=== PATIENT | female | born 1995 | race Two or more races ===

== ENCOUNTER 2024-07-07 14:48 | Emergency (ER) | payer MEDICAID, SELFPAY ==
[2024-07-07 14:48] VITALS: BMI 28.0
[2024-07-07 14:59] VITALS: BP 111/71; PULSE 82; RESP 18; TEMP 36.7; O2SAT 98
--- NOTE | 2024-07-07 15:05 | XR_ITS ---
Examination: OB Transvaginal ultrasound of the pelvis, complete Technique: Transvaginal sonographic images pelvis performed using shaver scale imaging Exam date and time: :2024 1527 hours INDICATIONS: Onset vaginal bleeding today FINDINGS: Uterus 9.4 cm pole 2.4 cm and corresponds to 9 weeks 1 day gestational age No cardiac motion Subchorionic hemorrhage 5.5 x 3.7 x 5.3 cm Right ovary 3.0 cm arterial flow The left ovary 3.4 cm arterial flow IMPRESSION: Findings consistent with demise, no cardiac motion.
--- NOTE | 2024-07-07 15:06 | PD.EDRME ---
Rapid Medical Screening Exam RME Arrival date/time: 07/07/24 14:48 28-year-old female presents to the Emergency Department today for complaint of vaginal bleeding Chief Complaint: Vaginal Bleeding Time Seen by Provider: 07/07/24 14:50 Vital signs: Vital Signs Temperature 98.1 F 07/07/24 14:59 Pulse Rate 82 07/07/24 14:59 Respiratory Rate 18 07/07/24 14:59 Blood Pressure 111/71 07/07/24 14:59 Pulse Oximetry (%) 98 07/07/24 14:59 Oxygen Delivery Method Room Air 07/07/24 14:59
[2024-07-07 15:28] LABS: Basophils % (Auto) 0 % (0-2.5); Eosinophils % (Auto) 1 % (0-10); Hematocrit 35.9 % (36.0-46.0); Hemoglobin 12.5 g/dL (12.0-16.0); Immature Granulocytes % (Auto) 0 % (0-0); Immature Granulocytes Auto 0.03 Thou/mm3 (0.00-0.00); Lymphocytes # (Auto) 1.6 Thou/mm3 (1.0-4.8); Lymphocytes % (Auto) 20 % (10-50); Mean Corpuscular HGB Conc 34.8 g/dl (31.0-37.0); Mean Corpuscular Hemoglobin 29.9 pg (25.0-35.0); Mean Corpuscular Volume 86 fL (80-100); Monocytes # (Auto) 0.6 Thou/mm3 (0.0-0.8); Monocytes % (Auto) 7 % (0-12); Neutrophils # (Auto) 5.7 Thou/mm3 (1.8-7.7); Neutrophils % (Auto) 72 % (37-80); Nucleated Red Blood Cell % 0 /100 WBC (0); Platelet Count 315 Thou/mm3 (140-440); RDW Standard Deviation 42.9 fL (36.4-46.3); Red Blood Count 4.18 Miln/mm3 (4.00-5.20)
[2024-07-07 15:38] LABS: Collection Type, Urine Clean Catch
[2024-07-07 16:02] LABS: Bilirubin,Urine Negative (Negative); Blood,Urine 2+ (Negative); Clarity,Urine Clear (Clear/Hazy); Color,Urine Lt-Yellow (Lt Yel-Yel); Glucose, Urine Negative (Negative); Ketones,Urine 1+ (Negative); Leukocyte Esterase,Urine Negative (Negative); Nitrite,Urine Negative (Negative); Protein,Urine Negative (Neg - Trace); RBC,Urine 1 /hpf (0-3); Squamous Epithelial Cell,Urine 2 /hpf (0-5); Urobilinogen,Urine Negative mg/dL (0.0-1.0); WBC,Urine 3 /hpf (0-5)
[2024-07-07 16:08] LABS: Alanine Aminotransferase 9 U/L (10-49); Albumin, Serum 4.4 gm/dL (3.5-5.0); Albumin/Globulin Ratio 1.5 (1.2-2.2); Alkaline Phosphatase 76 U/L (46-116); Anion Gap 10 (7-16); Aspartate Amino Transferase 13 U/L (0-34); BUN/Creatinine Ratio 15 Ratio (12-20); Bilirubin,Total 0.2 mg/dL (0.3-1.2); Blood Urea Nitrogen 9 mg/dL (9-23); Calcium 8.7 mg/dL (8.3-10.6); Calcium (Corrected) 8.7 mg/dL (8.5-10.1); Carbon Dioxide 22.2 mMol/L (20.0-31.0); Chloride 107 mMol/L (98-107); Creatinine (Component) 0.6 mg/dL (0.6-1.3); Estimated Creatinine Clearance 134.8 mL/min (>60); Globulin 2.9 gm/dL (2.3-3.5); Glucose 97 mg/dL (74-106); Osmolality,Calculated 276 (275-295); Potassium 3.7 mMol/L (3.4-5.1); Sodium 139 mMol/L (136-145); Total Protein 7.3 gm/dL (5.7-8.2); eGFR > 60 See Note
[2024-07-07 16:33] LABS: Beta HCG,Quantitative 34612 mIU/mL (<5.0)
[2024-07-07 17:15] VITALS: BP 115/65; PULSE 80; RESP 16; TEMP 36.7; O2SAT 99
--- NOTE | 2024-07-07 18:35 | EDNOTE_ITS ---
ED OB Contraction Preg RMI/HPI General Chief complaint: Vaginal Bleeding Stated complaint: +PREG, VAG BLEED THIS AM Time Seen by Provider: 07/07/24 14:50 Arrival date/time: 07/07/24 14:48 RME / HPI RME / HPI Narrative: 07/07/24 14:48 28-year-old female presents to the Emergency Department today for complaint of vaginal bleeding DR. CASTANEDA MAIN ED EVALUATION 28 year old female who is currently ~8-9 weeks gestational age by LMP 05/03/2024 presents to the ED for evaluation of abdominal pain beginning this morning. Pain described as cramping in sensation that is located most across pelvis, rating as moderate. Accompanied by bloody tinged discharge. Reports taking Tylenol without improvement. No other associated symptoms or complaints reported. Denies fever, chills, sweating. Denies nausea, vomiting, diarrhea, constipation. Denies dysuria, urinary frequency and urgency. Related Data Home Medications ?Medication ?Instructions ?Recorded ?Confirmed ferrous sulfate 325 mg (65 mg 325 mg PO BID 11/21/17 0 05/23/23 iron) tablet (Iron (ferrous sulfate)) vits no.124-ferrous fum 1 tab PO QDAY 4 05/23/23 27 mg iron-folic acid 800 mcg tablet ( Vitamin) Previous Rx's ?Medication ?Instructions ?Recorded docusate sodium 100 mg capsule 100 mg PO BID #60 caps 05/24/23 (Colace) ibuprofen 800 mg tablet 800 mg PO Q6H PRN pain #120 tabs 05/24/23 lanolin 50 % topical ointment 1 applic topical TID PRN skin 05/24/23 irritation #15 tubes Allergies Allergy/AdvReac Type Severity Reaction Status Date / Time No Known Allergies Allergy Verified 07/07/24 14:51 Review of Systems Review of Systems Systems Reviewed: All systems reviewed, normal except as documented Past Medical History Past Medical History NEUROLOGIC: Negative Neurological Disorders CARDIAC: Negative Cardiac Disorders RESPIRATORY: Positive Asthma (INHALER PRN) GASTROINTESTINAL: Positive Gastrointestinal Disorders (HX:GASTRITIS) GENITOURINARY: Positive Genitourinary Disorders (HX:UTI); Negative Renal Disease MUSCULOSKELETAL: Negative Musculoskeletal Disorders ENDOCRINE: Negative Endocrine Disorders HEMATOLOGIC: Positive Blood Disorders and Anemia Family History FAMILY HISTORY: Positive Family Gastrointestinal Problems (UNCLE:GASTRITIS) and Family Cancer (AUNT:BREAST CANCER, CERVIX); Negative Family Psychiatric Problems, Family Respiratory Disorders, Family Cardiac Disorders, Family Surgery or Family Anesthesia Reaction Surgical History SURGICAL: Negative Section Social History SMOKING STATUS: Never smoker ED Exam Narrative Physical exam: GENERAL APPEARANCE:? alert and oriented x 4, well-developed, well-nourished, no acute distress HEENT: normocephalic, atraumatic NECK: supple LUNGS: no respiratory distress, normal effort HEART: good peripheral perfusion ABDOMEN: non distended EXTREMITIES:? atraumatic NEUROLOGIC: awake; alert and oriented x4; cranial nerves II-XII grossly intact PSYCHIATRIC:? appropriate mood and affect SKIN: warm, dry, normal color; no rashes Course Quality Measures none Orders Category Date Time Status US OB transvaginal Stat Exams 07/07/24 15:05 Completed ABO/RH Type Stat Lab 07/07/24 15:12 Completed Beta HCG,Quantitative Stat Lab 07/07/24 15:12 Completed CBC Stat Lab 07/07/24 15:12 Completed Comprehensive Metabolic Panel Stat Lab 07/07/24 15:12 Completed UA [Urinalysis] Stat Lab 07/07/24 15:22 Completed Urine Culture Stat Lab 07/07/24 15:22 Completed Vital Signs Vital signs: Vital Signs Temperature 98.1 F 07/07/24 14:59 Pulse Rate 82 07/07/24 14:59 Respiratory Rate 18 07/07/24 14:59 Blood Pressure 111/71 07/07/24 14:59 Pulse Oximetry (%) 98 07/07/24 14:59 Oxygen Delivery Method Room Air 07/07/24 14:59 Pulse ox is 98% on room air which is adequate. Vaginal Bleeding MDM Narrative MDM Narrative: Danielle Keating am scribing for and in the presence of Dr. Castaneda. Patient data External records reviewed:: [facility] previous records (I reviewed ED visit on 12/07/2022 ) Clinical information provided by:: patient Social determinants that could affect healthcare access:: none Patient has the following chronic illnesses:: None reported How is presenting disease/condition affected by chronic disease/condition?: no chronic disease Evaluation data The following diagnostics were reviewed and interpreted by me:: lab results and radiology exam(s) Lab and/or radiology exams considered but not ordered:: None Interpretation Summary: Ordering Physician: Jackson FRASER)Kirk NP Date of Service: 07/07/24 Procedure(s): US OB transvaginal Accession Number(s): [id number] cc: Jackson (KELBY),Kirk LAMA; Kirk Hartman PA-C; Jeevan Houston MD~ Examination: OB Transvaginal ultrasound of the pelvis, complete Technique: Transvaginal sonographic images pelvis performed using shaver scale imaging Exam date and time: 2024 1527 hours INDICATIONS: Onset vaginal bleeding today FINDINGS: Uterus 9.4 cm pole 2.4 cm and corresponds to 9 weeks 1 day gestational age No cardiac motion Subchorionic hemorrhage 5.5 x 3.7 x 5.3 cm Right ovary 3.0 cm arterial flow The left ovary 3.4 cm arterial flow IMPRESSION: Findings consistent with demise, no cardiac motion. Dictated By: Jeevan Houston MD Signed By: <Electronically signed by Jeevan Houston MD in OV> 07/07/24 1637 Medications / Prescriptions Medications or Prescriptions considered but not ordered:: None Medication administrations:: None Consultations Consultation(s) initiated? (list below): No Diagnosis Vaginal Bleeding Differential Diagnosis: missed , threatened , incomplete and vaginal bleeding Most likely diagnosis given after review of the tests above:: Threatened Admission Indicated Admission indicated?: not indicated Admission Request Was there a request for admission?: No Disposition Plan Disposition Plan: Discharge Discharge Attestation Discharge Attestation: The patient and all family members were given an opportunity to ask questions and understood the discharge instructions. Discharge instructions specifically effects, indications for sooner follow up or return to the emergency department, and the expected course of current diagnosis. Patient condition: Stable Discharge Plan Plan Patient Disposition: HOME (Self Care) Prescriptions/Referrals Prescriptions/Med Rec: No Action ferrous sulfate [Iron (ferrous sulfate)] 325 mg (65 mg iron) Tablet 325 mg PO BID Vitamin 27 mg iron- 800 mcg Tablet 1 tab PO QDAY ibuprofen 800 mg tablet 800 mg PO Q6H MDD 4 PRN (Reason: pain) Qty: 120 0RF docusate sodium [Colace] 100 mg capsule 100 mg PO BID Qty: 60 0RF lanolin 50 % ointment 1 applic topical TID PRN (Reason: skin irritation) Qty: 15 0RF Referrals: Kirk Hartman PA-C [Primary Care Provider] - In 1 week Problem List Clinical Impression: Threatened Patient/Caregiver Discharge Instructions Education Materials: ED Possible Miscarriage ... Additional Instructions: It is likely you are having a miscarriage. Follow up with your doctor in 2 days for recheck of hormone levels for confirmation. 07/07/24 1512: beta HCG [id number] Print Language: Danish Stand Alone Forms: Shannon Award Info., Patient Portal Info Letter
== END 2024-07-07 18:28 | disposition home or self-care (01) ==
PROVIDERS: Nurse Practitioner Primary Care; Emergency Provider Emergency Medicine; PCP Physician Assistant
DX: O20.0 Threatened abortion (principal); Z3A.00 Weeks of gestation of pregnancy not specified
CPT/HCPCS: 36415; 76817; 80053; 81001; 84702; 85025; 86900; 86901; 87086; 99284

== ENCOUNTER 2024-07-25 11:27 | Observation (INO) | payer MEDICAID, SELFPAY ==
[2024-07-25] VITALS (19 sets, daily range): BP systolic 85–123; BP diastolic 44–81; PULSE 60–94; RESP 12–20; TEMP 36.1–36.8; O2SAT 97–100; BMI 27.8; BMI 28.4
--- NOTE | 2024-07-25 11:38 | XR_ITS ---
Examination: Transvaginal ultrasound of the pelvis, complete Technique: Transvaginal sonographic images pelvis performed using shaver scale imaging Exam date and time: July 25, 2024 at 1242 hours INDICATIONS: Vaginal bleeding beginning 2 weeks ago FINDINGS: Uterus 10.2 cm, positive for retained products of conception 8.2 x 3.4 x 4.9 cm No intrauterine gestation Right ovary 3.6 cm arterial flow Left ovary 3.8 cm arterial flow IMPRESSION: Positive for retained process of conception.
--- NOTE | 2024-07-25 11:38 | EKG_ITS ---
[facility] Test Date: 2024-07-25 Pat Name: BETTY KIMBROUGH Department: Room: - Gender: Female Inpatient Pharmacist: : 1995 Requested By: Neri Leon Order Number: [id number] Reading MD: Neri Leon Measurements Intervals Fries Rate: 76 P: 6 GA: 123 QRS: 8 QRSD: 86 T: 5 QT: 380 QTc: 429 Interpretive Statements SINUS RHYTHM No previous ECG available for comparison /store/S0/[id number]/ecg/[id number].pdf
--- NOTE | 2024-07-25 11:39 | EDNOTE_ITS ---
ED OB Contraction Preg RMI/HPI General Chief complaint: Vaginal Bleeding Stated complaint: MISCARRIAGE Time Seen by Provider: 07/25/24 11:38 Arrival date/time: 07/25/24 11:27 Limitations: no limitations RME / HPI RME / HPI Narrative: Patient is status post 17-day miscarriage and was brought in by EMS. She was found to be hypotensive on scene with a systolic pressures in the 80s. She is Debbie lead tachycardic with a heart rate at 112. She states she has had menorrhagia for the past 2 weeks. This morning, she was sitting on the toilet, when she had a syncopal episode. She had no associated injuries from her fall. She denies any recent nausea, vomiting, or diarrhea. Has no dysuria. Denies any fevers or chills. She denies any chronic medical history. Related Data Home Medications ?Medication ?Instructions ?Recorded ?Confirmed ferrous sulfate 325 mg (65 mg 325 mg PO BID 11/21/17 0 05/23/23 iron) tablet (Iron (ferrous sulfate)) vits no.124-ferrous fum 1 tab PO QDAY 4 05/23/23 27 mg iron-folic acid 800 mcg tablet ( Vitamin) Previous Rx's ?Medication ?Instructions ?Recorded docusate sodium 100 mg capsule 100 mg PO BID #60 caps 05/24/23 (Colace) ibuprofen 800 mg tablet 800 mg PO Q6H PRN pain #120 tabs 05/24/23 lanolin 50 % topical ointment 1 applic topical TID PRN skin 05/24/23 irritation #15 tubes Allergies Allergy/AdvReac Type Severity Reaction Status Date / Time No Known Allergies Allergy Verified 07/07/24 14:51 Review of Systems Review of Systems Systems Reviewed: All systems reviewed, normal except as documented ED Exam General Limitations: Present no limitations General appearance: Present alert and in no apparent distress Head Head exam: Present atraumatic Eye Eye exam: Present normal appearance, PERRL and EOMI ENT ENT exam: Present normal exam, normal oropharynx and mucous membranes moist Neck Neck exam: Present normal inspection, full ROM and trachea midline Chest Chest inspection: Present normal inspection and symmetric chest wall rise Respiratory Respiratory exam: Present normal lung sounds bilaterally Cardiovascular Cardiovascular exam: Present normal rhythm, tachycardia and normal heart sounds Abdominal Exam Abdominal exam: Present soft and normal bowel sounds; Absent distention or tenderness Rectal Exam Rectal exam: Present deferred External exam: Present normal external exam Speculum exam: Present vaginal bleeding and other (Exam performed with female CAT SITTER present. There is large amounts of clot in the vaginal canal. This was removed. Is no cervical motion tenderness. Screening swabs for wet mount and gonorrhea, chlamydia, were obtained.) Bimanual exam: Present normal bimanual exam; Absent cervical motion tenderness, adnexal tenderness or right adnexal tenderness Extremities Exam Extremities exam: Present normal inspection and full ROM Back Exam Back exam: Present normal inspection and full ROM Neurological Exam Neurological exam: Present alert, oriented X3 and CN II-XII intact Psychiatric Psychiatric exam: Present normal affect and normal mood Skin Skin exam: Present warm, dry, intact and normal color Course Quality Measures none Orders Category Date Time Status Patient Condition Routine Admission 07/25/24 15:07 Ordered SDC [Place in Surgical Day Care] Routine Admission 07/25/24 15:07 Active Activity as Tolerated Routine Care 07/25/24 15:07 Ordered COVID-19 Screening Questionnaire NOW Care 07/25/24 14:08 Active Clip Operative Site as Needed X1 Care 07/25/24 15:07 Active Decision to Admit X1 Care 07/25/24 14:08 Active EKG (ED ONLY) *Do not use* NOW Care 07/25/24 11:39 Completed May take PO meds w/sips of H2O PRN Care 07/25/24 15:07 Active NPO NOW Care 07/25/24 15:07 Active Obtain Written Consent For: NOW Care 07/25/24 15:07 Active Pelvic Exam X1 Care 07/25/24 11:49 Active Sequential Compression Device NOW Care 07/25/24 15:07 Active Diet NPO (NOW) Diet 07/25/24 15:07 Active EKG (ED Only) Stat Exams 07/25/24 11:38 Draft US transvaginal Stat Exams 07/25/24 11:38 Completed Bacterial Vaginal Panel Stat Lab 07/25/24 14:30 Received Beta HCG,Quantitative Stat Lab 07/25/24 12:07 Completed CBC Stat Lab 07/25/24 12:07 Completed CMP [Comprehensive Metabolic Panel] Stat Lab 07/25/24 12:07 Completed Chlamydia/GC/TV - PCR Stat Lab 07/25/24 14:30 Received Lipase Stat Lab 07/25/24 12:07 Completed TSH [Thyroid Stimulating Hormone] Stat Lab 07/25/24 12:07 Completed UA [Urinalysis] Stat Lab 07/25/24 11:39 Ordered Wound Culture and Gram Stain Stat Lab 07/25/24 12:31 Ordered Ringers Lactated 1000 ml [Lactated Ringers] 1,000 ml Med 07/25/24 15:15 Active IV 125 mls/hr Sodium Chloride 0.9% 1000 ml [Ns] 1,000 ml Med 07/25/24 11:38 Discontinued IV 999 mls/hr Code Status Routine Oth 07/25/24 15:07 Ordered Vital Signs Vital signs: Vital Signs Temperature 98.1 F 07/25/24 11:28 Pulse Rate 94 07/25/24 11:28 Respiratory Rate 17 07/25/24 11:28 Blood Pressure 123/81 07/25/24 11:28 Pulse Oximetry (%) 98 07/25/24 11:28 Oxygen Delivery Method Room Air 07/25/24 11:28 Vaginal Bleeding MDM Narrative MDM Narrative: 28-year-old female who came in today with vaginal bleeding. She had a miscarriage approximately 2 weeks ago. She had an outpatient ultrasound which we do not have access to which revealed retained products of conception. A repeat ultrasound today confirmed this. Her vitals have remained stable throughout the ER course. She is not tachycardic nor hypotensive. She has a white count of 12.2 thousand. Hemoglobin is 10.5 with hematocrit of 30.6. She has significant clot noted in the vaginal canal on exam. OB was consulted d and will accept the patient. Patient data External records reviewed:: [facility] previous records Clinical information provided by:: patient and EMS Social determinants that could affect healthcare access:: none Patient has the following chronic illnesses:: n/a How is presenting disease/condition affected by chronic disease/condition?: no chronic disease Evaluation data The following diagnostics were reviewed and interpreted by me:: lab results (Patient has a mild anemia but not requiring transfusion. Ultrasound confirms patient has retained products of conception.) and radiology exam(s) Lab and/or radiology exams considered but not ordered:: n/a Interpretation Summary: Mild anemia, vaginal bleeding Medications / Prescriptions Medications or Prescriptions considered but not ordered:: n/a Medication administrations:: Medication Administration History Lactated Ringer's (Lactated Ringers) 1,000 mls @ 125 mls/hr IV .Q8H POPPY Stop: 08/24/24 15:14 Discontinued Medications Sodium Chloride (Ns) 1,000 mls @ 999 mls/hr IV .Q1H1M ONE Stop: 07/25/24 12:38 Last Infusion: 07/25/24 13:33 Dose: Infused Documented By: Admin: 07/25/24 11:56 Dose: 999 mls/hr Documented By: DO See above Consultations Consultation(s) initiated? (list below): Yes Consultation #1 (Physician, Specialty, Details): Dr. Sun was informed of the patient when she arrived to the ER, her workup was pending at that time. After the her pelvic exam, workup results were obtained, he was paged at approximately 1420 5 PM. Case discussed with gynecology at approximately 1505 p.m., Dr Sun accepts the patient Diagnosis Vaginal Bleeding Differential Diagnosis: incomplete and vaginal bleeding Most likely diagnosis given after review of the tests above:: Miscarriage with retained products of conception Admission Indicated Admission indicated?: indicated Explain why admission is indicated or not indicated:: Patient required D&C and monitoring for syncopal episode Admission Request Was there a request for admission?: Yes Admission Attestation Admission request attestation: Discussed case with [] from Hospitalist service regarding admission. Discussed patients ED course, exam findings, labs, and radiology results. The Hospitalist [agrees,declines] to accept the patient for admission. Disposition Plan Disposition Plan: Admit Discharge Plan Plan Patient Disposition: Admit Acute Care w/in Hospital Patient condition on transfer: Stable Prescriptions/Referrals Prescriptions/Med Rec: No Action ferrous sulfate [Iron (ferrous sulfate)] 325 mg (65 mg iron) Tablet 325 mg PO BID Vitamin 27 mg iron- 800 mcg Tablet 1 tab PO QDAY ibuprofen 800 mg tablet 800 mg PO Q6H MDD 4 PRN (Reason: pain) Qty: 120 0RF docusate sodium [Colace] 100 mg capsule 100 mg PO BID Qty: 60 0RF lanolin 50 % ointment 1 applic topical TID PRN (Reason: skin irritation) Qty: 15 0RF Referrals: No Primary/Family,Physician [Primary Care Provider] - In 1 week Problem List Clinical Impression: Vaginal bleeding, Retained products of conception Patient/Caregiver Discharge Instructions Print Language: Upper Sorbian Stand Alone Forms: Shannon Award Info., Patient Portal Info Letter
[2024-07-25] MEDS: SODIUM CHLORIDE 0.9% 1000 ML 1,000 ML 999 ML IV (11:56)
[2024-07-25 12:23] LABS: Basophils # (Auto) 0.1 Thou/mm3 (0.0-0.2); Basophils % (Auto) 0 % (0-2.5); Eosinophils # (Auto) 0.1 Thou/mm3 (0.0-0.5); Eosinophils % (Auto) 0 % (0-10); Hematocrit 30.6 % (36.0-46.0); Hemoglobin 10.5 g/dL (12.0-16.0); Immature Granulocytes % (Auto) 1 % (0-0); Immature Granulocytes Auto 0.06 Thou/mm3 (0.00-0.00); Lymphocytes # (Auto) 1.3 Thou/mm3 (1.0-4.8); Lymphocytes % (Auto) 11 % (10-50); Mean Corpuscular HGB Conc 34.3 g/dl (31.0-37.0); Mean Corpuscular Hemoglobin 30.3 pg (25.0-35.0); Mean Corpuscular Volume 88 fL (80-100); Monocytes # (Auto) 0.7 Thou/mm3 (0.0-0.8); Monocytes % (Auto) 5 % (0-12); Neutrophils % (Auto) 82 % (37-80); Nucleated Red Blood Cell % 0 /100 WBC (0); Platelet Count 261 Thou/mm3 (140-440); RDW Standard Deviation 42.9 fL (36.4-46.3); Red Blood Count 3.47 Miln/mm3 (4.00-5.20); White Blood Count 12.2 Thou/mm3 (3.6-11.0)
[2024-07-25 12:58] LABS: Alanine Aminotransferase 7 U/L (10-49); Albumin, Serum 3.8 gm/dL (3.5-5.0); Albumin/Globulin Ratio 1.7 (1.2-2.2); Alkaline Phosphatase 63 U/L (46-116); Anion Gap 9 (7-16); Aspartate Amino Transferase 13 U/L (0-34); BUN/Creatinine Ratio 14 Ratio (12-20); Beta HCG,Quantitative 1012 mIU/mL (<5.0); Bilirubin,Total 0.2 mg/dL (0.3-1.2); Blood Urea Nitrogen 10 mg/dL (9-23); Calcium 8.2 mg/dL (8.3-10.6); Calcium (Corrected) 8.4 mg/dL (8.5-10.1); Carbon Dioxide 22.9 mMol/L (20.0-31.0); Chloride 108 mMol/L (98-107); Creatinine (Component) 0.7 mg/dL (0.6-1.3); Estimated Creatinine Clearance 115.2 mL/min (>60); Globulin 2.3 gm/dL (2.3-3.5); Glucose 106 mg/dL (74-106); Lipase 25 U/L (12-53); Osmolality,Calculated 278 (275-295); Potassium 4.1 mMol/L (3.4-5.1); Sodium 140 mMol/L (136-145); Thyroid Stimulating Hormone 1.12 uIU/mL (0.55-4.78); Total Protein 6.1 gm/dL (5.7-8.2); eGFR > 60 See Note
--- NOTE | 2024-07-25 15:09 | ESHP_ITS ---
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 ELLSWORTH is a 28 year old female Alysa Ellsworth is a 28-year-old female who presents to the emergency room with heavy uterine bleeding. The patient was previously seen on July 07, 2024, for a threatened , where she was evaluated by the ER team. The patient reports that she has been experiencing heavy uterine bleeding for the past two weeks. This current episode of bleeding follows her previous visit on July 07, 2024, when she was diagnosed with a threatened . At that time, an ultrasound revealed a pole measuring 2.4 centimeters, corresponding to 9 weeks and one day gestation, without cardiac motion. A subchorionic hemorrhage measuring 5.5 by 3.7 by 5.3 centimeters was also noted. 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 However, due to the persistent and heavy bleeding over the past two weeks, she has returned to the emergency room for further evaluation and management. Alysa receives her regular obstetric care at [facility]. It is noted that her psoriasis has significantly improved since her last visit. The patient's obstetric history includes A1 L0. Her current was complicated by a threatened on July 07, 2024. She is currently on methadone, which is on hold due to uterine hemorrhage. ROS: Genitourinary: Positive for heavy uterine bleeding for the last 2 weeks. Negative except as stated above, limited to OB-DEMAND EQUIPMENT REPAIRER and pertinent complaints. Diagnostic Test Results and Labs: Ultrasound (07/07/2024): - pole: 2.4 cm (corresponding to 9 weeks and 1 day) - No cardiac motion - Subchorionic hemorrhage: 5.5 x 3.7 x 5.3 cm - Both ovaries: Within normal limits Ultrasound (07/25/2024): - Uterus: 10.2 cm - Retained products of conception: 8.2 x 3.4 x 4.9 cm - Right ovary: 3.6 cm - Left ovary: 3.8 cm - No intertransgestion Previous results: - HC,612 (07/07/2024), 1,012 (07/25/2024) Meds Home Medications and Allergies Home Medications ?Medication ?Instructions ?Recorded ?Confirmed ?Type ferrous sulfate 325 mg (65 mg 325 mg PO BID 11/21/17 0 05/23/23 History iron) tablet (Iron (ferrous sulfate)) vits no.124-ferrous fum 1 tab PO QDAY 4 05/23/23 History 27 mg iron-folic acid 800 mcg tablet ( Vitamin) Allergies Allergy/AdvReac Type Severity Reaction Status Date / Time No Known Allergies Allergy Verified 07/07/24 14:51 Exam - DEMAND EQUIPMENT REPAIRER Vital Signs Temp Pulse Resp BP Pulse Ox O2 Del Method 98.1 F 94 17 123/81 98 Room Air 07/25/24 11:28 07/25/24 11:28 07/25/24 11:28 07/25/24 11:28 07/25/24 11:28 07/25/24 11:28 Constitutional Constitutional: no acute distress Routine HEENT Exam Head: Present normocephalic and atraumatic Eye: Present EOMI and PERRL ENT: Present mucous membranes moist Routine Neck Exam Neck: Present supple and trachea midline Routine Respiratory Exam Respiratory: Present chest non-tender, lungs clear, normal breath sounds and no resp distress Routine Cardiovascular Exam Cardiovascular: Present RRR Routine Abdominal Exam Abdominal: Present soft and normoactive bowel sounds Routine Extremities Exam Extremities: Present full ROM Routine Skin Exam Skin: Present intact and dry Routine Neurological Exam Neurological: Present alert, oriented X3 and CN II-XII intact Routine Psychiatric Exam Psychiatric: Present normal affect and normal thought process DEMAND EQUIPMENT REPAIRER - Results Labs 07/25/24 12:07 07/25/24 12:07 Labs: Short CBC 07/25/24 Range/Units 12:07 WBC 12.2 H (3.6-11.0) Thou/mm3 Hgb 10.5 L (12.0-16.0) g/dL Hct 30.6 L (36.0-46.0) % Plt Count 261 D (140-440) Thou/mm3 BMP 07/25/24 12:07 Sodium 140 Potassium 4.1 Chloride 108 H Carbon Dioxide 22.9 BUN 10 Creatinine 0.7 Glucose 106 Calcium 8.2 L Liver Function 07/25/24 Range/Units 12:07 Total Bilirubin 0.2 L (0.3-1.2) mg/dL AST 13 (0-34) U/L ALT 7 L (10-49) U/L Alkaline Phosphatase 63 (46-116) U/L Albumin 3.8 (3.5-5.0) gm/dL Assessment and Plan Assessment and plan (1) Incomplete : Status: Acute Assessment and plan: Incomplete Spontaneous with Retained Products of Conception: - Initially seen on 07/07/2024 for threatened . - Ultrasound on 07/07/2024 showed 9-week 1-day pole without cardiac motion and subchorionic hemorrhage. - Current ultrasound shows uterus measuring 10.2 cm with retained products of conception measuring 8.2 x 3.4 x 4.9 cm. - hCG levels dropped from 34,612 on 07/07/2024 to 10,012 on 07/25/2024. - Heavy uterine bleeding for past 2 weeks. Plan: - Admit to ambulatory surgery for suction dilatation and curettage (D&C) - Schedule as add-on case for 4 p.m. - No antibiotics indicated for the procedure - Obtain informed consent for suction D&C - Anticipate discharge home after the procedure - Hold methergine as needed for uterine hemorrhage Uterine Hemorrhage: - Heavy uterine bleeding for past 2 weeks. - Likely due to incomplete spontaneous and retained products of conception. Plan: - Proceed with suction D&C as planned (2) Retained products of conception: Status: Acute (3) Vaginal bleeding: Status: Acute Quality Measures Quality Measures none
--- NOTE | 2024-07-25 17:19 | PD.GYNPROC ---
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 Identity was confirmed using two patient identifiers. The patient was positioned on the operating table, and general anesthesia was administered. She was then placed in the dorsal lithotomy position using Adam stirrups. The perineum was prepped and draped in the usual sterile fashion. A straight catheter was used to empty the bladder. A weighted speculum was placed in the posterior vaginal fornix, and a right-angle retractor was used to retract the anterior vaginal wall. An atraumatic grasper was used to gently grasp the anterior lip of the cervix, which was placed under traction. Cervical length from the external to internal os was assessed, and a uterine sound was used to measure uterine depth. The cervix was noted to be dilated to approximately 14 mm. A 14 mm suction cannula was introduced through the cervical os, and multiple gentle passes were performed until evacuation of all tissue and blood clots was complete. Endometrial grating was palpated, and the uterus was noted to have contracted appropriately. The suction cannula was removed, and a gentle curettage was performed using a standard curette. Will continue to have brisk bleeding Bakri balloon was now introduced into the uterine cavity and inflated with 200 cc of sterile water a Cummings catheter was also placed to continuous drainage. All instruments were then withdrawn. Uterine bleeding was minimal. The atraumatic grasper was removed from the cervix, which was visualized and found to be hemostatic. The speculum was removed from the vaginal canal. The patient was then cleaned, undraped, and taken out of the lithotomy position. General anesthesia was reversed, and the patient was transferred to the recovery room in stable and awake condition. The procedure was well tolerated. All instrument, sponge, and lap counts were correct ?2. Estimated blood loss (ml): 300 Complications: intraoperative hemorrhage Surgical staff Operation Date: 07/25/24 15:45 <No data on this case meets the specified criteria> Diagnosis Discharge Diagnosis (1) Incomplete : Status: Acute (2) Retained products of conception: Status: Acute Problem List Completed Was Problem List Reviewed/Reconciled?: Yes
--- NOTE | 2024-07-25 17:20 | SUR.PHASEI ---
Addendum entered by Jolynn Basilio RN 07/25/24 19:46: 1720: Pt. AAOx4, vitals stable, breathing unlabored, complaint of pain, will give pain medicine, no complaint of nausea, munguia catheter in place draining clear urine, bakri balloon in place, report received from MD Dc and Evans NAVARRETE. Original Note: 1720: Pt. AAOx4, vitals stable, breathing unlabored, complaint of pain, will give pain medicine, no complaint of nausea, munguia catheter in place draining clear urine, valkyrie balloon in place, report received from MD Dc and Evans NAVARRETE.
[2024-07-25] MEDS: ACETAMINOPHEN IVPB 1,000 MG/100 ML VIAL 250 MG IV ×2 (17:32→18:01)
--- NOTE | 2024-07-25 17:35 | SUR.OPER ---
Bakri Balloon inflated with 115 mL NaCl
[2024-07-25] MEDS: HYDROmorphone INJ 2 MG/ML VIAL 0.4 MG IVP ×3 (17:38→18:52)
[2024-07-25] MEDS: METHYLERGONOVINE 0.2 MG TABLET PO ×2 (17:52→21:48)
[2024-07-25 18:00] LABS: BVAG Candida Negative (Negative); Bacterial Vaginosis Markers Negative (Negative); Candida glabrata Negative (Negative); Candida krusei PCR Negative (Negative); Trichomonas Negative (Negative)
[2024-07-25] MEDS: ceFAZolin/D5W 2 GM IV 2 GM/100 ML BAG IV (18:01)
[2024-07-25] MEDS: RINGERS LACTATED 1000 ML 1,000 ML 125 ML IV (18:09)
[2024-07-25 18:29] LABS: Basophils % (Auto) 0 % (0-2.5); Eosinophils % (Auto) 0 % (0-10); Hematocrit 27.4 % (36.0-46.0); Hemoglobin 9.5 g/dL (12.0-16.0); Immature Granulocytes % (Auto) 0 % (0-0); Immature Granulocytes Auto 0.05 Thou/mm3 (0.00-0.00); Lymphocytes # (Auto) 1.3 Thou/mm3 (1.0-4.8); Lymphocytes % (Auto) 9 % (10-50); Mean Corpuscular HGB Conc 34.7 g/dl (31.0-37.0); Mean Corpuscular Hemoglobin 30.4 pg (25.0-35.0); Mean Corpuscular Volume 88 fL (80-100); Monocytes # (Auto) 0.4 Thou/mm3 (0.0-0.8); Monocytes % (Auto) 3 % (0-12); Neutrophils # (Auto) 12.6 Thou/mm3 (1.8-7.7); Neutrophils % (Auto) 88 % (37-80); Nucleated Red Blood Cell % 0 /100 WBC (0); Platelet Count 234 Thou/mm3 (140-440); RDW Standard Deviation 43.1 fL (36.4-46.3); Red Blood Count 3.13 Miln/mm3 (4.00-5.20); White Blood Count 14.4 Thou/mm3 (3.6-11.0)
--- NOTE | 2024-07-25 19:25 | SUR.PHASEII ---
1925: Pt. AAOx4, vitals stable, breathing unlabored, no complaint of pain or nausea, peripad in place CDI, munguia catheter in place draining clear urine, bakri balloon in place, report given to Jolynn NAVARRETE prior to transfer to room 368, family made aware of transfer to room, pt. transferred with all personal belongings.
[2024-07-25] MEDS: IBUPROFEN TAB 600 MG TABLET PO (19:54)
[2024-07-25] MEDS: TRANEXAMIC ACID 1,000 MG IVPB 1,000 MG/100 ML BAG 200 MG IV (21:48)
[2024-07-25 23:21] LABS: Collection Type, Urine Clean Catch
[2024-07-25 23:27] LABS: Bilirubin,Urine Negative (Negative); Blood,Urine 1+ (Negative); Clarity,Urine Clear (Clear/Hazy); Color,Urine Colorless (Lt Yel-Yel); Glucose, Urine 2+ (Negative); Ketones,Urine 1+ (Negative); Leukocyte Esterase,Urine Negative (Negative); Nitrite,Urine Negative (Negative); PH,Urine 5.5 (5.0-7.0); Protein,Urine Negative (Neg - Trace); RBC,Urine 2 /hpf (0-3); Specific Gravity,Urine 1.015 (1.001-1.035); Squamous Epithelial Cell,Urine < 1 /hpf (0-5); Urobilinogen,Urine Negative mg/dL (0.0-1.0); WBC,Urine 2 /hpf (0-5)
[2024-07-26] VITALS: BP 111/79; PULSE 85; RESP 20; TEMP 36.3; O2SAT 98
[2024-07-26 04:00] VITALS: BP 98/57; PULSE 70; RESP 16; TEMP 36.6; O2SAT 98
[2024-07-26] MEDS: RINGERS LACTATED 1000 ML 1,000 ML 125 ML IV (04:51)
[2024-07-26] MEDS: ceFAZolin/D5W 2 GM IV 2 GM/100 ML BAG IV ×2 (04:51→10:42)
[2024-07-26 05:00] VITALS: BP 98/57; PULSE 74
[2024-07-26] MEDS: METHYLERGONOVINE 0.2 MG TABLET PO ×2 (05:00→13:13)
[2024-07-26 05:32] LABS: Basophils % (Auto) 0 % (0-2.5); Eosinophils % (Auto) 0 % (0-10); Hematocrit 26.5 % (36.0-46.0); Hemoglobin 9.1 g/dL (12.0-16.0); Immature Granulocytes % (Auto) 1 % (0-0); Immature Granulocytes Auto 0.07 Thou/mm3 (0.00-0.00); Lymphocytes # (Auto) 0.8 Thou/mm3 (1.0-4.8); Lymphocytes % (Auto) 8 % (10-50); Mean Corpuscular HGB Conc 34.3 g/dl (31.0-37.0); Mean Corpuscular Hemoglobin 30.4 pg (25.0-35.0); Mean Corpuscular Volume 89 fL (80-100); Monocytes # (Auto) 0.2 Thou/mm3 (0.0-0.8); Monocytes % (Auto) 2 % (0-12); Neutrophils # (Auto) 8.8 Thou/mm3 (1.8-7.7); Neutrophils % (Auto) 89 % (37-80); Nucleated Red Blood Cell % 0 /100 WBC (0); Platelet Count 259 Thou/mm3 (140-440); RDW Standard Deviation 43.4 fL (36.4-46.3); Red Blood Count 2.99 Miln/mm3 (4.00-5.20); White Blood Count 9.9 Thou/mm3 (3.6-11.0)
--- NOTE | 2024-07-26 07:58 | ESPR_ITS ---
Documentation for date of: 07/26/24 PROPELLANT CHARGE ZONE ASSEMBLER Subjective Subjective Interval history: Ms. ELLSWORTH is a 28 year old female Alysa Ellsworth is a 28-year-old female who presents to the emergency room with heavy uterine bleeding. The patient was previously seen on July 07, 2024, for a threatened , where she was evaluated by the ER team. The patient reports that she has been experiencing heavy uterine bleeding for the past two weeks. This current episode of bleeding follows her previous visit on July 07, 2024, when she was diagnosed with a threatened . At that time, an ultrasound revealed a pole measuring 2.4 centimeters, corresponding to 9 weeks and one day gestation, without cardiac motion. A subchorionic hemorrhage measuring 5.5 by 3.7 by 5.3 centimeters was also noted. After her initial ER visit, Alysa was discharged home with instructions to follow up with her regular OB-PROPELLANT CHARGE ZONE ASSEMBLER doctor. However, due to the persistent and heavy bleeding over the past two weeks, she has returned to the emergency room for further evaluation and management. Alysa receives her regular obstetric care at [facility]. It is noted that her psoriasis has significantly improved since her last visit. The patient's obstetric history includes A1 L0. Her current was complicated by a threatened on July 07, 2024. She is currently on methadone, which is on hold due to uterine hemorrhage. ROS: Genitourinary: Positive for heavy uterine bleeding for the last 2 weeks. Negative except as stated above, limited to OB-PROPELLANT CHARGE ZONE ASSEMBLER and pertinent complaints. Diagnostic Test Results and Labs: Ultrasound (07/07/2024): - pole: 2.4 cm (corresponding to 9 weeks and 1 day) - No cardiac motion - Subchorionic hemorrhage: 5.5 x 3.7 x 5.3 cm - Both ovaries: Within normal limits Ultrasound (07/25/2024): - Uterus: 10.2 cm - Retained products of conception: 8.2 x 3.4 x 4.9 cm - Right ovary: 3.6 cm - Left ovary: 3.8 cm - No intertransgestion Previous results: - HC,612 (07/07/2024), 1,012 (07/25/2024) Subjective: patient reports feeling better, pain is well controlled, patient is tolerating oral intake and other (No vaginal bleeding. Bakri balloon in place. Cummings catheter in place) Exam Vital Signs Temp Pulse Resp BP Pulse Ox O2 Del Method O2 Flow Rate 98 F 74 16 98/57 L 98 Room Air 2 07/26/24 04:00 07/26/24 05:00 07/26/24 04:00 07/26/24 05:00 07/26/24 04:00 07/26/24 04:00 07/25/24 17:35 Narrative Exam Patient is alert and oriented x 3 in no apparent distress. Resting comfortably eating her breakfast. Routine Abdominal Exam Abdominal: Present soft Comments: Fundus firm nontender Additional findings Additional findings: Bakri balloon removed with 180 cc of clear fluid present and a minor amount of bleeding in the tube and bag. Urinary Catheter Management Cath placed during this visit: yes, but has since been removed by the nurse Reason for Continuing: Other continuation reason (Cummings catheter in overnight as patient had a hemorrhage post dilation curettage and a bakri balloon was in place) Insertion date: 07/25/24 Removal date: 07/26/24 PROPELLANT CHARGE ZONE ASSEMBLER - PN: Obj Data Labs 07/26/24 04:48 07/25/24 12:07 Labs: Laboratory Results - last 24 hr 07/25/24 07/25/24 07/25/24 12:07 14:30 18:19 WBC 12.2 H 14.4 H RBC 3.47 L 3.13 L Hgb 10.5 L 9.5 L Hct 30.6 L 27.4 L MCV 88 88 MCH 30.3 30.4 MCHC 34.3 34.7 RDW Std Deviation 42.9 43.1 Plt Count 261 D 234 Neut % (Auto) 82 H 88 H Lymph % (Auto) 11 9 L [place] % (Auto) 5 3 Eos % (Auto) 0 0 Baso % (Auto) 0 0 Neut # (Auto) 10.0 H 12.6 H Lymph # (Auto) 1.3 1.3 [place] # (Auto) 0.7 0.4 Eos # (Auto) 0.1 0.0 Baso # (Auto) 0.1 0.0 Immature Gran # (Auto) 0.06 H 0.05 H Absolute Nucleated RBC 0.00 0.00 Immature Gran % 1 H 0 Nucleated RBC % 0 0 Sodium 140 Potassium 4.1 Chloride 108 H Carbon Dioxide 22.9 Anion Gap 9 BUN 10 Creatinine 0.7 Estim Creat Clear Calc 115.2 eGFR > 60 BUN/Creatinine Ratio 14 Glucose 106 Calculated Osmolality 278 Calcium 8.2 L Corrected Calcium 8.4 L Total Bilirubin 0.2 L AST 13 ALT 7 L Alkaline Phosphatase 63 Total Protein 6.1 Albumin 3.8 Globulin 2.3 Albumin/Globulin Ratio 1.7 Lipase 25 TSH 1.12 Beta HCG, Quant 1012 Ur Collection Type Urine Color Urine Clarity Urine pH Ur Specific [place] Urine Protein Urine Glucose (UA) Urine Ketones Urine Blood Urine Nitrite Urine Bilirubin Urine Urobilinogen (Auto) Ur Leukocyte Esterase Urine RBC Urine WBC Ur Squamous Epith Cells Urine Bacteria C. glabrata (PCR) Negative C. krusei (PCR) Negative Ernestine species DNA Negative Chlam trachomat DNA PCR Cancelled N.gonorrhoeae DNA (PCR) Cancelled Trichomonas DNA Probe Negative Bact vaginosis (PCR) Negative 07/25/24 07/26/24 23:00 04:48 WBC 9.9 RBC 2.99 L Hgb 9.1 L Hct 26.5 L MCV 89 MCH 30.4 MCHC 34.3 RDW Std Deviation 43.4 Plt Count 259 Neut % (Auto) 89 H Lymph % (Auto) 8 L [place] % (Auto) 2 Eos % (Auto) 0 Baso % (Auto) 0 Neut # (Auto) 8.8 H Lymph # (Auto) 0.8 L [place] # (Auto) 0.2 Eos # (Auto) 0.0 Baso # (Auto) 0.0 Immature Gran # (Auto) 0.07 H Absolute Nucleated RBC 0.00 Immature Gran % 1 H Nucleated RBC % 0 Sodium Potassium Chloride Carbon Dioxide Anion Gap BUN Creatinine Estim Creat Clear Calc eGFR BUN/Creatinine Ratio Glucose Calculated Osmolality Calcium Corrected Calcium Total Bilirubin AST ALT Alkaline Phosphatase Total Protein Albumin Globulin Albumin/Globulin Ratio Lipase TSH Beta HCG, Quant Ur Collection Type Clean Catch Urine Color Colorless A Urine Clarity Clear Urine pH 5.5 Ur Specific [place] 1.015 Urine Protein Negative Urine Glucose (UA) 2+ A Urine Ketones 1+ A Urine Blood 1+ A Urine Nitrite Negative Urine Bilirubin Negative Urine Urobilinogen (Auto) Negative Ur Leukocyte Esterase Negative Urine RBC 2 Urine WBC 2 Ur Squamous Epith Cells < 1 Urine Bacteria None C. glabrata (PCR) C. krusei (PCR) Ernestine species DNA Chlam trachomat DNA PCR N.gonorrhoeae DNA (PCR) Trichomonas DNA Probe Bact vaginosis (PCR) PROPELLANT CHARGE ZONE ASSEMBLER - A/P Assessment and plan (1) Incomplete : Status: Acute Assessment and plan: Status post suction dilation and chart curettage discharge home today (2) Retained products of conception: Status: Acute Assessment and plan: Status post suction curettage discharge home today Postoperative Procedures: Procedures Operation Date: 07/25/24 15:45 Actual Procedure Side Surgeon p Suction Dilatation & Curettage with Bokri Balloon Placement Sonny Sun MD Postoperative day: 1 Postoperative status: doing well Postoperative plan: discharge Time Spent With Patient Time: Total time spent is greater than 50% in coordination of care (as documented) at patient's floor/unit and/or counseling patient: Time with patient: less than 15 minutes Procedures Procedure Date 07/25/24 Procedure Comments Suction dilation and curettage by Dr. Sun in the operating room 07/25/2024. Please see op report for further details.
[2024-07-26 08:00] VITALS: BP 105/65; PULSE 74; RESP 18; TEMP 36.7; O2SAT 98
--- NOTE | 2024-07-26 08:03 | PD.GYNDS ---
Planned Discharge Date 07/26/24 DS: Providers Provider Date of admission: 07/25/24 19:30 Primary care physician: Physician No Primary/Family Admitting Provider: Sonny Sun MD Attending Provider on Admission: Sonny Sun MD Attending Provider on DC: Marcy Booker [facility] ([facility]) Discharging Provider: Marcy Booker MD ([facility]) Anticipated date of discharge: 07/26/24 DS: Diagnosis Discharge Diagnosis (1) Incomplete : Status: Acute Assessment & Plan: Status post suction dilation and curettage 07/25/[address] Sun and observation overnight (2) Retained products of conception: Status: Acute Assessment & Plan: Status post suction dilation curettage 07/25/[address] Sun in observation overnight Problem List Completed Was Problem List Reviewed/Reconciled?: Yes Hospital Course Hospital Course Hospital course: Ms. ELLSWORTH is a 28 year old female Alysa Ellsworth is a 28-year-old female who presents to the emergency room with heavy uterine bleeding. The patient was previously seen on July 07, 2024, for a threatened , where she was evaluated by the ER team. The patient reports that she has been experiencing heavy uterine bleeding for the past two weeks. This current episode of bleeding follows her previous visit on July 07, 2024, when she was diagnosed with a threatened . At that time, an ultrasound revealed a pole measuring 2.4 centimeters, corresponding to 9 weeks and one day gestation, without cardiac motion. A subchorionic hemorrhage measuring 5.5 by 3.7 by 5.3 centimeters was also noted. After her initial ER visit, Alysa was discharged home with instructions to follow up with her regular OB-ELECTRONIC TYPESETTING MACHINE OPERATOR doctor. However, due to the persistent and heavy bleeding over the past two weeks, she has returned to the emergency room for further evaluation and management. Alysa receives her regular obstetric care at [facility]. It is noted that her psoriasis has significantly improved since her last visit. The patient's obstetric history includes A1 L0. Her current was complicated by a threatened on July 07, 2024. She is currently on methadone, which is on hold due to uterine hemorrhage. ROS: Genitourinary: Positive for heavy uterine bleeding for the last 2 weeks. Negative except as stated above, limited to OB-ELECTRONIC TYPESETTING MACHINE OPERATOR and pertinent complaints. Diagnostic Test Results and Labs: Ultrasound (07/07/2024): - pole: 2.4 cm (corresponding to 9 weeks and 1 day) - No cardiac motion - Subchorionic hemorrhage: 5.5 x 3.7 x 5.3 cm - Both ovaries: Within normal limits Ultrasound (07/25/2024): - Uterus: 10.2 cm - Retained products of conception: 8.2 x 3.4 x 4.9 cm - Right ovary: 3.6 cm - Left ovary: 3.8 cm - No intertransgestion Previous results: - HC,612 (07/07/2024), 1,012 (07/25/2024) Patient underwent a suction dilation and curettage by Dr. Sun the evening of 07/25/2024. She had some intraoperative and postop bleeding and a Bakri balloon was placed. She was admitted for observation overnight. Her predelivery hemoglobin was 10.5 postdelivery hemoglobin 9.1 She was discharged home postop day #1 in stable condition. The Bakri balloon was removed prior to discharge. Her Cummings catheter was removed prior to discharge. Status at Discharge Cognitive/behavioral status at discharge: Alert and oriented x 3 in no apparent distress Functional status at discharge: independent ambulation Overall status at discharge: patient is progressing back to baseline Time Spent with Patient Time attestation: Total time spent providing and/or coordinating discharge services: Time spent: Less than 30 minutes Specific discharge activities: Pelvic rest x 2-weeks, no intercourse tampons douching swimming bathtubs x 2 weeks Exam - ELECTRONIC TYPESETTING MACHINE OPERATOR Vital Signs Temp Pulse Resp BP Pulse Ox O2 Del Method O2 Flow Rate 98 F 74 16 98/57 L 98 Room Air 2 07/26/24 04:00 07/26/24 05:00 07/26/24 04:00 07/26/24 05:00 07/26/24 04:00 07/26/24 04:00 07/25/24 17:35 Narrative Exam Patient is alert and oriented x 3 in no apparent distress fundus is firm nontender Discharge Plan Plan Patient Disposition: HOME (Self Care) Disposition Comment: Stable Patient condition on transfer: Stable Prescriptions/Referrals Prescriptions/Med Rec: New hydrocodone-acetaminophen 5-325 mg tablet 1 tab PO Q6H MDD 4 PRN (Reason: pain) 3 Days Qty: 12 0RF docusate sodium [Stool Softener] 100 mg capsule 100 mg PO QDAY 30 Days Qty: 30 0RF ibuprofen 600 mg tablet 600 mg PO Q6H MDD 4 PRN (Reason: fever or pain) 10 Days Qty: 40 0RF amoxicillin-pot clavulanate 875-125 mg tablet 1 tab PO BID 7 Days Qty: 14 0RF Discontinued ferrous sulfate [Iron (ferrous sulfate)] 325 mg (65 mg iron) Tablet 325 mg PO BID Vitamin 27 mg iron- 800 mcg Tablet 1 tab PO QDAY ibuprofen 800 mg tablet 800 mg PO Q6H MDD 4 PRN (Reason: pain) Qty: 120 0RF docusate sodium [Colace] 100 mg capsule 100 mg PO BID Qty: 60 0RF lanolin 50 % ointment 1 applic topical TID PRN (Reason: skin irritation) Qty: 15 0RF Referrals: Sonny Sun MD [Physician] - No Primary/Family,Physician [Primary Care Provider] - In 1 week Patient/Caregiver Discharge Instructions Meds to Beds: Yes Discharge Activity: activity as tolerated Other Discharge Activity Instructions:: Pelvic rest x 2 weeks no intercourse tampons douching swimming x 2 weeks discussed control at clinic. Discouraged till patient has had 2-3 normal cycles. Other Discharge Diet Instructions: High iron diet continue vitamins Education Materials: Dilation and Curettage, D and C Dc, ED Miscarriage, Incomplete Print Language: Brazilian Stand Alone Forms: Shannon Award Info., Patient Portal Info Letter, DC from Surgery Discharge Order Discharge Orders: Discharge (Routine); Ordered 07/26/24 Ordered By: Marcy Booker ([facility])
[2024-07-26] MEDS: TRANEXAMIC ACID 1,000 MG IVPB 1,000 MG/100 ML BAG 200 MG IV (08:53)
[2024-07-26] MEDS: IBUPROFEN TAB 600 MG TABLET PO (08:54)
--- NOTE | 2024-07-26 10:53 | PC.NURSE ---
0800. Dr. Booker at bedside. Bakri Balloon removed by Dr. Booker. Verbal orders by Dr. Booker to remove munguia cath and pt is ok to discharge home after administration of scheduled medications.
[2024-07-26 12:00] VITALS: BP 102/60; PULSE 72; RESP 18; TEMP 36.9; O2SAT 98
[2024-07-26 13:13] VITALS: BP 102/60; PULSE 72
== END 2024-07-26 13:45 | disposition home or self-care (01) ==
LOC: SERX 15:08 → S2EX 15:13 → S3SX 07-26 06:24
PROVIDERS: Physician Assistant Medical; Admitting Provider Obstetrics & Gynecology; Emergency Provider Family Medicine; Referring Provider Obstetrics & Gynecology; Visit Provider Obstetrics & Gynecology
PROC: (CPT 58120; principal; 2024-07-25 15:30)
DX: O03.4 Incomplete spontaneous abortion without complication (principal); O99.019 Anemia complicating pregnancy, unspecified trimester; O99.713 Diseases of the skin and subcutaneous tissue complicating pregnancy, third trimester; L40.9 Psoriasis, unspecified; Z3A.00 Weeks of gestation of pregnancy not specified; Z01.810 Encounter for preprocedural cardiovascular examination
CPT/HCPCS: 59812; 36415; 76830; 80053; 81001; 81514; 83690; 84443; 84702; 85025; 87070; 87077; 87186; 87205; 87491; 87591; 87661; 93005; 96361; 96365; 96366; 96375; 96376; 99285; A4217; A4314; G0378; J0131; J0689; J1171; J2210; J2704; J3010; J3490; J7030; J7120; A9270

== ENCOUNTER → 2024-08-16 | Outpatient (CLI) | payer MEDICAID, SELFPAY ==
[2024-08-15 12:35] LABS: Basophils # (Auto) 0.0 Thou/mm3 (0.0-0.2); Basophils % (Auto) 1 % (0-2.5); Eosinophils # (Auto) 0.2 Thou/mm3 (0.0-0.5); Eosinophils % (Auto) 3 % (0-10); Hematocrit 30.6 % (36.0-46.0); Hemoglobin 10.0 g/dL (12.0-16.0); Immature Granulocytes Auto 0.08 Thou/mm3 (0.00-0.00); Lymphocytes # (Auto) 1.8 Thou/mm3 (1.0-4.8); Lymphocytes % (Auto) 27 % (10-50); Mean Corpuscular HGB Conc 32.7 g/dl (31.0-37.0); Mean Corpuscular Hemoglobin 28.3 pg (25.0-35.0); Mean Corpuscular Volume 87 fL (80-100); Monocytes # (Auto) 0.6 Thou/mm3 (0.0-0.8); Monocytes % (Auto) 9 % (0-12); Neutrophils # (Auto) 4.0 Thou/mm3 (1.8-7.7); Neutrophils % (Auto) 60 % (37-80); Nucleated Red Blood Cell # 0.00 Thou/mm3 (0.00-0.00); Nucleated Red Blood Cell % 0 /100 WBC (0); Platelet Count 403 Thou/mm3 (140-440); RDW Standard Deviation 43.7 fL (36.4-46.3); Red Blood Count 3.53 Miln/mm3 (4.00-5.20); White Blood Count 6.7 Thou/mm3 (3.6-11.0)
[2024-08-15 13:07] LABS: INR 1.0 (0.9-1.3); Partial Thromboplastin Time 30.9 Seconds (22.0-36.0); Prothrombin Time 10.6 Seconds (9.0-12.2)
--- NOTE | 2024-08-16 10:30 | XR_ITS ---
Examination: Ultrasound-guided fine needle percutaneous aspiration thyroid nodule, right thyroid nodule. Thyroid sonography, limited Exam date and time: August 16, 2024 1115 hours INDICATIONS: Large right thyroid nodule on thyroid sonogram today. Technique: A timeout was completed verifying correct patient, procedure, site, positioning and special equipment if applicable. The patient was placed in supine position for the thyroid fine needle percutaneous aspiration The patient's right neck was prepped and draped in sterile fashion. Maximum barrier sterile technique, hand hygiene, ultrasound sterile technique. 1% lidocaine was used to anesthetize the skin and subcutaneous tissues to the patient's right thyroid nodule. Multiple fine needle aspirations were performed and multiple thyroid specimens placed in preservative according to the irm protocol. Specimens appears satisfactory. The attending radiologist was present for the entire procedure. Estimated blood loss 3 cc. The patient tolerated the procedure well and there were no complications. Impression: Successful ultrasound-guided fine-needle percutaneous aspiration thyroid nodule, right thyroid nodule.
--- NOTE | 2024-08-16 10:30 | XR_ITS ---
Examination: Thyroid sonography complete TECHNIQUE: Grayscale sonographic images thyroid lobes Date and time: August 16, 2024 1109 hours INDICATIONS: Anterior neck lump noticed beginning 2 months ago. FINDINGS: Right thyroid 6.3 cm Midpole large mass 5.3 x 3.7 x 4.4 cm Left thyroid 3.4 cm No solid nodules IMPRESSION: Large mid pole right thyroid nodule 5.3 x 3.7 x 4.4 cm
== END | disposition home or self-care (01) ==
LOC: SDIM 10:35
PROVIDERS: Radiology Diagnostic Radiology; PCP Physician Assistant; Referring Provider Physician Assistant; Visit Provider Physician Assistant
DX: E04.1 Nontoxic single thyroid nodule (principal)
CPT/HCPCS: 10005; 36415; 76536; 85025; 85610; 85730